=== PATIENT | male | born 1940 | race Caucasian/White ===

== ENCOUNTER 2017-01-26 11:59 | Emergency (ER) | payer OTHER ==
[~2017-01-26] VITALS: Ht 167.6 cm; Wt 63.0 kg
[2017-01-26 15:45] VITALS: BP 153/74
== END 2017-01-26 16:32 | disposition home or self-care (01) ==
LOC: ED 11:59
DX: S51.812A Laceration without foreign body of left forearm, initial encounter (principal); Z89.022 Acquired absence of left finger(s); W22.8XXA Striking against or struck by other objects, initial encounter; Y93.89 Activity, other specified; Y99.8 Other external cause status; Y92.89 Other specified places as the place of occurrence of the external cause
CPT/HCPCS: 90715; J1885; J2001; J7030